=== PATIENT | male | born 1970 | race Caucasian/White ===

== ENCOUNTER 2016-06-02 13:11 | Emergency (ER) | payer MEDICAID ==
[~2016-06-02] VITALS: Ht 188 cm; Wt 77.1 kg
[2016-06-02 14:56] VITALS: BP 138/98
[2016-06-02] MEDS ORDERED: HYDROcodone-ACET 10/325MG TAB PO ONE (15:30)
[2016-06-02] MEDS ORDERED: KETOROLAC TROMETH 60MG/2ML VIAL IM ONE (15:30)
== END 2016-06-02 16:26 | disposition home or self-care (01) ==
LOC: EDBD 13:14 → ER 13:14
DX: M54.42 Lumbago with sciatica, left side (principal); G89.29 Other chronic pain
CPT/HCPCS: 96372; 99283; J1885

== ENCOUNTER 2016-06-15 21:40 | Emergency (ER) | payer MEDICAID ==
[~2016-06-15] VITALS: Ht 188 cm; Wt 77.1 kg
[2016-06-15 22:48] LABS: Urine RBC None Seen /hpf (0 - 3)
[2016-06-15 22:54] LABS: Urine Bilirubin Negative (Negative); Urine Blood Negative /uL (Negative); Urine Color Yellow (Yellow); Urine Glucose Normal (Normal); Urine Ketone Negative (Negative); Urine Nitrite Negative (Negative); Urine Squamous Epithelial Cell FEW /hpf (<5)
[2016-06-15 22:59] LABS: Basophils # (auto) 0 uL; Basophils % (auto) 0.3 % (0.0-2.0); Eosinophils # (auto) 0.1 uL; Eosinophils % (auto) 1.6 % (0.0-7.0); Hematocrit 45.2 % (41.0-53.0); Hemoglobin 14.8 g/dL (13.5-17.5); Lymphocytes # (auto) 1.9 uL; Lymphocytes % (auto) 20.7 % (10.0-50.0); Mean Corpuscular Hemoglobin 28.8 pg (28.0-32.0); Mean Corpuscular Hgb Conc. 32.8 g/dL (32.0-36.0); Mean Corpuscular Volume 87.7 fL (80.0-100.0); Mean Platelet Volume 8.3 fL (7.4-10.4); Monocytes # (auto) 0.7 uL; Monocytes % (auto) 7.3 % (0.0-12.0); Neutrophils # (auto) 6.4 uL; Neutrophils % (auto) 70.1 % (37.0-80.0); Platelet Count (auto) 291 10^3/uL (140-450); Red Cell Distribution Width 12.7 % (11.6-16.0); White Blood Cell 9.1 10^3/uL (4.4-10.8)
[2016-06-15 23:22] LABS: Albumin 3.8 g/dL (3.4-5.0); BUN/Creatinine Ratio 12.8; Calcium 9.2 mg/dL (8.5-10.1); Potassium 4.4 mmol/L (3.5-5.1)
[2016-06-15 23:25] LABS: Bilirubin, Total 0.2 mg/dL (0.2-1.0)
[2016-06-16] MEDS ORDERED: HYDROmorphone HCL 2 MG/ML VL IV ONE (01:30)
[2016-06-16] MEDS ORDERED: ONDANSETRON HCL 4 MG/2 ML VIAL IV ONE (01:30)
[2016-06-16 04:53] VITALS: BP 151/94
== END 2016-06-16 05:30 | disposition home or self-care (01) ==
LOC: ER 21:43
DX: S33.5XXA Sprain of ligaments of lumbar spine, initial encounter (principal); M54.16 Radiculopathy, lumbar region; M51.17 Intervertebral disc disorders with radiculopathy, lumbosacral region; M79.1 Myalgia; G89.29 Other chronic pain; M54.30 Sciatica, unspecified side
CPT/HCPCS: 36415; 72131; 80053; 81001; 85025; 96374; 96375; 99285; J1170; J2405

== ENCOUNTER 2016-09-16 03:16 | Emergency (ER) | payer MEDICAID ==
[~2016-09-16] VITALS: Ht 188 cm; Wt 68.0 kg
[2016-09-16 03:42] VITALS: BP 129/81
[2016-09-16 04:10] LABS: Basophils # (auto) 0 uL; Basophils % (auto) 0.3 % (0.0-2.0); CONDITION Y; Eosinophils # (auto) 0.1 uL; Eosinophils % (auto) 1.6 % (0.0-7.0); Hemoglobin 14.7 g/dL (13.5-17.5); Lymphocytes # (auto) 1.6 uL; Mean Corpuscular Hemoglobin 29.2 pg (28.0-32.0); Mean Corpuscular Hgb Conc. 33.4 g/dL (32.0-36.0); Mean Corpuscular Volume 87.4 fL (80.0-100.0); Mean Platelet Volume 8.1 fL (7.4-10.4); Monocytes # (auto) 0.4 uL; Monocytes % (auto) 4.4 % (0.0-12.0); Neutrophils # (auto) 6.4 uL; Neutrophils % (auto) 74.7 % (37.0-80.0); Platelet Count (auto) 374 10^3/uL (140-450); Red Cell Distribution Width 13.3 % (11.6-16.0); White Blood Cell 8.5 10^3/uL (4.4-10.8)
[2016-09-16 04:31] LABS: Albumin 3.7 g/dL (3.4-5.0); BUN/Creatinine Ratio 13.8; Calcium 8.9 mg/dL (8.5-10.1); Potassium 4.2 mmol/L (3.5-5.1)
[2016-09-16 04:34] LABS: Bilirubin, Total 0.4 mg/dL (0.2-1.0); Total Protein 7.9 g/dL (6.4-8.2)
== END 2016-09-16 12:26 | disposition left against medical advice (07) ==
LOC: ER 03:16
DX: M54.9 Dorsalgia, unspecified (principal); M79.605 Pain in left leg; Z53.21 Procedure and treatment not carried out due to patient leaving prior to being seen by health care provider
CPT/HCPCS: 36415; 74176; 80053; 85025

== ENCOUNTER 2016-11-13 12:54 | Emergency (ER) | payer MEDICAID ==
[~2016-11-13] VITALS: Ht 188 cm; Wt 67.6 kg
[2016-11-13 13:06] VITALS: BP 123/95
[2016-11-13 13:31] LABS: Basophils # (auto) 0 uL; Basophils % (auto) 0.6 % (0.0-2.0); Eosinophils # (auto) 0.1 uL; Eosinophils % (auto) 3.2 % (0.0-7.0); Hematocrit 43.4 % (41.0-53.0); Hemoglobin 14.5 g/dL (13.5-17.5); Lymphocytes # (auto) 1.2 uL; Lymphocytes % (auto) 27.3 % (10.0-50.0); Mean Corpuscular Hemoglobin 29.5 pg (28.0-32.0); Mean Corpuscular Hgb Conc. 33.4 g/dL (32.0-36.0); Mean Corpuscular Volume 88.3 fL (80.0-100.0); Mean Platelet Volume 8.5 fL (7.4-10.4); Monocytes # (auto) 0.4 uL; Monocytes % (auto) 9.3 % (0.0-12.0); Neutrophils # (auto) 2.6 uL; Neutrophils % (auto) 59.6 % (37.0-80.0); Nucleated Red Blood Cells % 0.1 %; Platelet Count (auto) 214 10^3/uL (140-450); White Blood Cell 4.4 10^3/uL (4.4-10.8)
== END 2016-11-13 15:51 | disposition home or self-care (01) ==
LOC: ER 12:56
DX: R07.9 Chest pain, unspecified (principal); R06.02 Shortness of breath; M79.1 Myalgia; F17.210 Nicotine dependence, cigarettes, uncomplicated
CPT/HCPCS: 36415; 71020; 84484; 85025; 93005

== ENCOUNTER 2017-03-28 13:26 | Emergency (ER) | payer MEDICAID ==
[~2017-03-28] VITALS: Ht 188 cm; Wt 74.4 kg
[2017-03-28 13:52] VITALS: BP 134/89
== END 2017-03-28 17:57 | disposition left against medical advice (07) ==
LOC: ER 13:26
DX: F41.9 Anxiety disorder, unspecified (principal); F32.9 Major depressive disorder, single episode, unspecified; F17.210 Nicotine dependence, cigarettes, uncomplicated

== ENCOUNTER 2017-06-05 11:45 | Emergency (ER) | payer MEDICAID ==
[~2017-06-05] VITALS: Ht 188 cm; Wt 66.0 kg
[2017-06-05] MEDS ORDERED: MEPERIDINE HCL (25 MG/ML) 1ML VIAL IV ONE (13:00)
[2017-06-05] MEDS ORDERED: LORazepam 2MG/ML-1ML VIAL IV ONE (13:00)
[2017-06-05 17:11] VITALS: BP 135/79
== END 2017-06-05 17:27 | disposition home or self-care (01) ==
LOC: ER 11:45 → EDBD 11:45 → ER 17:27
DX: M50.30 Other cervical disc degeneration, unspecified cervical region (principal); M79.1 Myalgia
CPT/HCPCS: 72125; 96374; 96375; 99291; J2060; J2175; J7030

== ENCOUNTER 2017-10-14 10:19 | Emergency (ER) | payer MEDICAID, OTHER ==
[~2017-10-14] VITALS: Ht 188 cm; Wt 70.8 kg
[2017-10-14 10:44] VITALS: BP 151/92
[2017-10-14] MEDS ORDERED: KETOROLAC TROMETH 60MG/2ML VIAL IM ONE (12:00)
== END 2017-10-14 12:29 | disposition home or self-care (01) ==
LOC: ER 10:19
DX: M54.12 Radiculopathy, cervical region (principal); F17.210 Nicotine dependence, cigarettes, uncomplicated
CPT/HCPCS: 72040; 93005; 96372; 99284; J1885

== ENCOUNTER 2018-01-19 13:31 | Emergency (ER) | payer MEDICAID ==
[~2018-01-19] VITALS: Ht 188 cm; Wt 70.8 kg
[2018-01-19 15:46] VITALS: BP 129/89
== END 2018-01-19 16:14 | disposition home or self-care (01) ==
LOC: ER 13:31
DX: S60.052A Contusion of left little finger without damage to nail, initial encounter (principal); J45.909 Unspecified asthma, uncomplicated; I10 Essential (primary) hypertension; F17.210 Nicotine dependence, cigarettes, uncomplicated; W19.XXXA Unspecified fall, initial encounter; Y93.89 Activity, other specified; Y92.410 Unspecified street and highway as the place of occurrence of the external cause; Y99.8 Other external cause status
CPT/HCPCS: 29130; 73140

== ENCOUNTER 2018-08-24 23:16 | Emergency (ER) | payer MEDICAID ==
[~2018-08-24] VITALS: Ht 188 cm; Wt 74.8 kg
[2018-08-24 23:52] LABS: Basophils # (auto) 0 uL; Basophils % (auto) 0.3 % (0.0-2.0); Eosinophils # (auto) 0.2 uL; Hematocrit 38.5 % (41.0-53.0); Hemoglobin 12.7 g/dL (13.5-17.5); Lymphocytes # (auto) 1.5 uL; Lymphocytes % (auto) 28.2 % (10.0-50.0); Mean Corpuscular Hemoglobin 28.8 pg (28.0-32.0); Mean Corpuscular Volume 87.3 fL (80.0-100.0); Monocytes # (auto) 0.4 uL; Monocytes % (auto) 8.3 % (0.0-12.0); Neutrophils # (auto) 3.1 uL; Neutrophils % (auto) 59.2 % (37.0-80.0); Nucleated Red Blood Cells % 0.1 %; Platelet Count (auto) 221 10^3/uL (140-450); Red Blood Cells 4.41 10^6/uL (4.5-5.90); Red Cell Distribution Width 13.2 % (11.8-14.3); White Blood Cell 5.3 10^3/uL (4.4-10.8)
[2018-08-25 00:09] LABS: Alanine Aminotransferase 20 U/L (16-61); Albumin 3.8 g/dL (3.4-5.0); Anion Gap 6 (5-15); Aspartate Aminotransferase 11 U/L (15-37); BUN/Creatinine Ratio 15.3; Blood Urea Nitrogen 18 mg/dL (7-18); Calcium 8.8 mg/dL (8.5-10.1); Carbon Dioxide 29 mmol/L (21-32); Chloride 107 mmol/L (98-107); GFR African American 85 mL/min; GFR Non-African American 70 mL/min; Glucose 92 mg/dL (74-106); Potassium 4.1 mmol/L (3.5-5.1); Sodium 142 mmol/L (136-145)
[2018-08-25 00:14] LABS: Alkaline Phosphatase 85 U/L (45-117); Bilirubin, Total 0.2 mg/dL (0.2-1.0); Total Protein 7.5 g/dL (6.4-8.2)
[2018-08-25 05:54] VITALS: BP 129/90
== END 2018-08-25 04:00 | disposition left against medical advice (07) ==
LOC: ER 23:18
DX: R07.9 Chest pain, unspecified (principal); Z53.21 Procedure and treatment not carried out due to patient leaving prior to being seen by health care provider
CPT/HCPCS: 36415; 71045; 80053; 84484; 85025; 93005

== ENCOUNTER 2018-09-26 08:07 | Emergency (ER) | payer MEDICAID ==
[~2018-09-26] VITALS: Ht 188 cm; Wt 74.4 kg
[2018-09-26 08:37] LABS: Basophils # (auto) 0.1 uL; Basophils % (auto) 2.6 % (0.0-2.0); Eosinophils # (auto) 0.1 uL; Eosinophils % (auto) 2.9 % (0.0-7.0); Hematocrit 44.4 % (41.0-53.0); Hemoglobin 14.8 g/dL (13.5-17.5); Lymphocytes # (auto) 1.5 uL; Lymphocytes % (auto) 29.3 % (10.0-50.0); Mean Corpuscular Hemoglobin 28.9 pg (28.0-32.0); Mean Corpuscular Hgb Conc. 33.3 g/dL (32.0-36.0); Mean Corpuscular Volume 86.8 fL (80.0-100.0); Monocytes # (auto) 0.5 uL; Neutrophils # (auto) 2.9 uL; Neutrophils % (auto) 56.2 % (37.0-80.0); Nucleated Red Blood Cells % 0.2 %; Platelet Count (auto) 230 10^3/uL (140-450); Red Blood Cells 5.12 10^6/uL (4.5-5.90); Red Cell Distribution Width 12.7 % (11.8-14.3); White Blood Cell 5.1 10^3/uL (4.4-10.8)
[2018-09-26] MEDS ORDERED: ONDANSETRON HCL 4 MG/2 ML VIAL IV ONE (08:45)
[2018-09-26] MEDS ORDERED: MORPHINE SULFATE 4 MG/ML SYR/VIAL IV ONE (08:45)
[2018-09-26 08:56] LABS: Albumin 3.8 g/dL (3.4-5.0); Calcium 9.6 mg/dL (8.5-10.1); Potassium 4.7 mmol/L (3.5-5.1)
[2018-09-26 08:58] LABS: BUN/Creatinine Ratio 15.6
[2018-09-26 08:59] LABS: Bilirubin, Total 0.5 mg/dL (0.2-1.0); Total Protein 7.6 g/dL (6.4-8.2)
[2018-09-26] MEDS ORDERED: SODIUM CHLORIDE 0.9% 1,000 ML IV ONE ×2 (08:59)
[2018-09-26] MEDS ORDERED: DOCUSATE SOD 100 MG CAP PO ONE (09:00)
[2018-09-26 12:38] LABS: Urine Bacteria NONE SEEN /hpf (None Seen); Urine Blood Negative /uL (Negative); Urine Mucus FEW (None Seen); Urine Specific Gravity 1.025 (1.001-1.035); Urine WBC None Seen /hpf (0 - 3)
[2018-09-26 13:00] VITALS: BP 137/86
== END 2018-09-26 13:57 | disposition home or self-care (01) ==
LOC: ER 08:07
DX: N20.0 Calculus of kidney (principal); K59.00 Constipation, unspecified; R11.2 Nausea with vomiting, unspecified; J45.909 Unspecified asthma, uncomplicated; I10 Essential (primary) hypertension; F17.210 Nicotine dependence, cigarettes, uncomplicated
CPT/HCPCS: 36415; 74176; 80053; 81001; 83690; 85025; 96361; 96374; 96375; 99284; J2270; J2405; J7030

== ENCOUNTER 2019-03-31 03:30 | Inpatient (IN) | payer MEDICAID ==
[~2019-03-31] VITALS: Ht 185.4 cm; Wt 73.1 kg
[2019-03-31 05:27] LABS: Basophils # (auto) 0.1 uL; Basophils % (auto) 0.9 % (0.0-2.0); Eosinophils # (auto) 0.1 uL; Eosinophils % (auto) 2.2 % (0.0-7.0); Hematocrit 38.5 % (41.0-53.0); Hemoglobin 12.8 g/dL (13.5-17.5); Lymphocytes # (auto) 1.6 uL; Lymphocytes % (auto) 27.5 % (10.0-50.0); Mean Corpuscular Hemoglobin 28.4 pg (28.0-32.0); Mean Corpuscular Hgb Conc. 33.3 g/dL (32.0-36.0); Mean Corpuscular Volume 85.4 fL (80.0-100.0); Monocytes # (auto) 0.4 uL; Monocytes % (auto) 7.4 % (0.0-12.0); Neutrophils # (auto) 3.6 uL; Nucleated Red Blood Cells % 0.2 %; Platelet Count (auto) 208 10^3/uL (140-450); Red Blood Cells 4.51 10^6/uL (4.5-5.90); White Blood Cell 5.9 10^3/uL (4.4-10.8)
[2019-03-31 05:39] LABS: Albumin 3.6 g/dL (3.4-5.0); Anion Gap 6 (5-15); Blood Urea Nitrogen 21 mg/dL (7-18); Carbon Dioxide 28 mmol/L (21-32); Chloride 104 mmol/L (98-107); Glucose 94 mg/dL (74-106); Potassium 3.9 mmol/L (3.5-5.1); Sodium 138 mmol/L (136-145)
[2019-03-31 05:45] LABS: Alanine Aminotransferase 15 U/L (16-61); Alkaline Phosphatase 85 U/L (45-117); Aspartate Aminotransferase 13 U/L (15-37); BUN/Creatinine Ratio 21.4; Bilirubin, Total 0.3 mg/dL (0.2-1.0); GFR African American 105 mL/min; GFR Non-African American 87 mL/min; Total Protein 7.1 g/dL (6.4-8.2)
[2019-03-31] MEDS ORDERED: ALBUTEROL SULF 2.5 MG/0.5ML(0.5%) NEB SOLN NEB ONE ×2 (07:15→12:30)
[2019-03-31] MEDS ORDERED: IPRATROPIUM BROM 0.5 MG/2.5ML INH SOL NEB ONE ×2 (07:15→12:30)
[2019-03-31] MEDS ORDERED: methylPREDNISolone SOD SUCC 125 MG/2 ML VL IV ONE (07:30)
[2019-03-31] MEDS ORDERED: IOHEXOL 350 MG/ML 100ML IJ ONE (10:27)
[2019-03-31] MEDS ORDERED: ONDANSETRON HCL 4 MG/2 ML VIAL IV ONE (12:45)
[2019-03-31] MEDS ORDERED: MORPHINE SULFATE 4 MG/ML SYR/VIAL IV ONE (12:45)
[2019-03-31] MEDS: SODIUM CHLORIDE 0.9% 1,000 ML IV SCH (13:43)
[2019-03-31] MEDS ORDERED: TEMAZEPAM 15 MG CAP PO PRN (13:45)
[2019-03-31] MEDS ORDERED: NITROGLYCERIN 0.4 MG SL TAB SL PRN (13:45)
[2019-03-31] MEDS ORDERED: ALBUTEROL SULF 2.5 MG/0.5ML(0.5%) NEB SOLN NEB PRN (13:45)
[2019-03-31] MEDS ORDERED: traMADol HCL 50 MG TAB PO PRN (13:45)
[2019-03-31] MEDS ORDERED: OSELTAMIVIR 75 MG CAP PO ONE (13:45)
[2019-03-31] MEDS ORDERED: LACTULOSE 20Gm/30ML SOLN PO PRN (13:45)
[2019-03-31] MEDS ORDERED: MORPHINE SULF INJ 2 MG/ML SYRINGE 1ML IV PRN (13:45)
[2019-03-31] MEDS ORDERED: PROMETHAZINE HCL 25 MG/ML 1ML IV PRN (13:45)
[2019-03-31] MEDS ORDERED: DEXTROSE (50%) 50ML SYRG IV PRN (13:45)
[2019-03-31] MEDS ORDERED: ACETAMINOPHEN 500 MG TAB PO PRN (13:45)
[2019-03-31] MEDS: DOXYCYCLINE 100MG/250ML 250 ML IV SCH (13:45)
--- NOTE | 2019-03-31 15:38 | NUR ---
Telemetry admit from ER VITALIY KINCAID admitted to Telemetry unit after no SBAR received from SNOW[employer]ARD[employer] INSTRUCTOR Ever. Patient oriented to Chantal Centeno RN primary RN, unit, room, bed, and unit policies regarding patient care and visiting hours. Patient now on continuous telemetry monitoring, tele box #[id number] and telemetry reading on arrival to unit is Sinus Tachycardia 110. Patient weighed by bedscale and encouraged to call if they need something. All questions and concerns addressed, patient verbalized understanding.
[2019-03-31 15:57] VITALS: BP 125/82
[2019-03-31] MEDS ORDERED: DIPH50CA31 OR (16:42)
[2019-03-31] MEDS ORDERED: LISI10TA6 PO (16:42)
[2019-03-31] MEDS ORDERED: HYDR-4833 PO (16:42)
[2019-03-31] MEDS ORDERED: CYCL-611 PO (16:42)
[2019-03-31] MEDS ORDERED: GABA300C10 PO (16:42)
[2019-03-31] MEDS ORDERED: NAP500T PO (16:42)
[2019-03-31] MEDS ORDERED: PNEUMOCOCCAL VACC POLYS 25 MCG/0.5 ML VIAL IM ONE (16:45)
[2019-03-31] MEDS ORDERED: INFLUENZA QUAD 2019-2020 0.5ml SYRG IM ONE (16:45)
[2019-03-31] MEDS: InsuLIN REG 1unit/0.01ml Soln (100units/ml) SC SCH ×2 (17:00→21:06)
[2019-03-31] MEDS: ACCU-CHEK COMFORT CURVE STRIP VI SCH ×2 (17:24→21:06)
[2019-03-31] MEDS: methylPREDNISolone SOD SUCC 40 MG/ML VL IV SCH (17:32)
[2019-03-31] MEDS: IPRATROPIUM BROM 0.5 MG/2.5ML INH SOL NEB SCH (18:16)
[2019-03-31] MEDS: ALBUTEROL SULF 2.5 MG/0.5ML(0.5%) NEB SOLN NEB SCH (18:16)
--- NOTE | 2019-03-31 18:53 | NUR ---
CLOSING SHIFT NOTE ENDORSED CARE TO SECURITY DISPATCHER JOANN ORTIZ. PATIENT HAS NO S/S OF DISTRESS/SOB OR PAIN AT THIS TIME.
--- NOTE | 2019-03-31 19:20 | NUR ---
Opening Shift Note Assumed care of patient, awake and alert. No S/S of distress/SOB or pain. Instructed on POC and to call for assist PRN, will continue to monitor for changes Q1hr and PRN.
[2019-03-31 20:00] VITALS: BP 109/59
[2019-03-31 20:55] VITALS: BP 125/82
[2019-03-31 22:00] VITALS: BP_SYST 59
[2019-03-31] MEDS: OSELTAMIVIR 75 MG CAP PO SCH (22:06)
[2019-04-01] MEDS: methylPREDNISolone SOD SUCC 40 MG/ML VL IV SCH ×3 (00:37→12:00)
[2019-04-01] MEDS: DOXYCYCLINE 100MG/250ML 250 ML IV SCH ×2 (00:50→14:00)
[2019-04-01] MEDS: SODIUM CHLORIDE 0.9% 1,000 ML IV SCH (03:00)
--- NOTE | 2019-04-01 03:30 | NUR ---
PT CARE RESUMED/REPORT RECEIVED FROM DIANA DAVID PT CURRENTLY SLEEPING, ON HIS LEFT SIDE, BREATHING EVEN AND UNLABORED, ON RA, NO C/O CP, SOB, DOES C/O OF DISCOMFORT TO BLE, STATES HE TAKES GABAPENTIN, INFORMED WE I WILL ENDORSE TO DAYSHIFT FOR MD TO RESUME, WILL MEDICATE WITH CURRENT MEDICATION ORDERED FOR PAIN, LUNGS CLEAR, NO CURRENT C/O COUGH, INSTRUCTED WE ARE TO COLLECT A RESPIRATORY CULTURE, COLLECTION CUP PROVIDED, CALL LIGHT WITHIN REACH, CONT CARE
--- NOTE | 2019-04-01 05:00 | NUR ---
PT ACTIVITY PT AMBULATING [facility], ON RA, NO C/O SOB OR CP, NO DISTRESS NOTED, CONT CARE
[2019-04-01 05:30] VITALS: BP 146/74
[2019-04-01] MEDS: ACCU-CHEK COMFORT CURVE STRIP VI SCH ×2 (05:58→11:30)
[2019-04-01] MEDS: ALBUTEROL SULF 2.5 MG/0.5ML(0.5%) NEB SOLN NEB SCH ×3 (06:19→11:27)
[2019-04-01] MEDS: IPRATROPIUM BROM 0.5 MG/2.5ML INH SOL NEB SCH ×3 (06:19→11:28)
[2019-04-01] MEDS: InsuLIN REG 1unit/0.01ml Soln (100units/ml) SC SCH ×2 (06:28→11:30)
--- NOTE | 2019-04-01 07:30 | NUR ---
OPENING SHIFT NOTE: Received report from Lucinda DAVID. Assumed care of patient. Patient resting quietly in room. Denies pain. Bed in lowest position, rails x2 up and call light within reach. Updated on plan of care. Will continue to monitor.
[2019-04-01 09:00] VITALS: BP 118/74
[2019-04-01] MEDS: OSELTAMIVIR 75 MG CAP PO SCH (10:00)
[2019-04-01] MEDS ORDERED: ENOXAPARIN SOD 40 MG/0.4 ML SYRINGE SC SCH (10:00)
--- NOTE | 2019-04-01 10:12 | NUR ---
Held Tamiflu due to negative Influenza A and B.
--- NOTE | 2019-04-01 12:30 | NUR ---
Unable to medicate patient with 1200 Solumedrol. Patient not in room.
--- NOTE | 2019-04-01 12:42 | NUR ---
Nutrition Assessment Notes Please refer to link for full assessment notes Est energy needs: 8550-4938 kcals (25-30 kcal/kgBW) Est protein needs: 58-73 gms/day (0.8-1.0 gm/kgBW) Will continue to monitor and reassess prn Addendum: 04/01/19 at [address] Amended: Links added.
--- NOTE | 2019-04-01 12:50 | NUR ---
MD: Dr Ambrosio trying to round on patient. Patient still not in room. Paged patient over head to return to room. Patient's belongings still in room.
--- NOTE | 2019-04-01 13:04 | NUR ---
Patient still not in room, Dr Ambrosio patiently waiting to round on patient. Paged security to locate patient.
--- NOTE | 2019-04-01 13:30 | NUR ---
MD: Patient returned to room. Dr Ambrosio to see.
[2019-04-01 14:00] VITALS: BP 123/78
--- NOTE | 2019-04-01 15:45 | NUR ---
DISCHARGE: Discharge instructions given as ordered. Encourage to follow up with PMD as instructed. All questions and concerns addressed. Patient verbalized understanding. Medication reconciliation form completed and copy given to patient. IV removed with catheter intact, pressure dressing applied. Telemetry unit returned to ICU. Patient taken to vehicle via wheelchair with all personal belongings, accompanied by staff and family member. No distress noted at time of departure.
== END 2019-04-01 15:30 | disposition home or self-care (01) | DRG 140 ==
LOC: ER 03:30 → TELE-EAST 03:31
PROVIDERS: ADMIT Internal Medicine; ATTEND Internal Medicine
DX: J44.0 Chronic obstructive pulmonary disease with (acute) lower respiratory infection (principal); J18.9 Pneumonia, unspecified organism; J44.1 Chronic obstructive pulmonary disease with (acute) exacerbation; E11.9 Type 2 diabetes mellitus without complications; F32.9 Major depressive disorder, single episode, unspecified; I73.00 Raynaud's syndrome without gangrene; F17.210 Nicotine dependence, cigarettes, uncomplicated; I10 Essential (primary) hypertension; F41.9 Anxiety disorder, unspecified; Z87.01 Personal history of pneumonia (recurrent); Z79.51 Long term (current) use of inhaled steroids; Z79.899 Other long term (current) drug therapy; Z82.49 Family history of ischemic heart disease and other diseases of the circulatory system; Z80.3 Family history of malignant neoplasm of breast; J45.901 Unspecified asthma with (acute) exacerbation
CPT/HCPCS: 36415; 71046; 71275; 80053; 82962; 83036; 84484; 85025; 85379; 86225; 86235; 87804; 94640; 96374; 96375; G0378; J1815; J2405; J3490

== ENCOUNTER 2020-01-02 12:25 | Emergency (ER) | payer MEDICAID ==
[~2020-01-02] VITALS: Ht 188 cm; Wt 77.1 kg
[~2020-01-02 12:25] MED LIST: CYCL-611 PO; DIPH50CA31 OR; GABA300C10 PO; HYDR-4833 PO; LISI-648 PO; NAP500T PO
[2020-01-02 14:05] VITALS: BP 100/61
[2020-01-02] MEDS ORDERED: ACETAMINOPHEN/CODEINE#3 (300/30mg) TAB PO ONE (14:45)
== END 2020-01-02 15:02 | disposition home or self-care (01) ==
LOC: ER 12:25
DX: G89.29 Other chronic pain (principal); M54.9 Dorsalgia, unspecified; Z76.0 Encounter for issue of repeat prescription; M54.2 Cervicalgia; F41.9 Anxiety disorder, unspecified; J45.909 Unspecified asthma, uncomplicated; E11.9 Type 2 diabetes mellitus without complications; I10 Essential (primary) hypertension; F17.210 Nicotine dependence, cigarettes, uncomplicated; Z79.899 Other long term (current) drug therapy

== ENCOUNTER 2020-04-29 20:27 | Emergency (ER) | payer MEDICAID ==
[~2020-04-29] VITALS: Ht 188 cm; Wt 77.1 kg
[2020-04-29] MEDS ORDERED: PANTOPRAZOLE 40 MG/10 ML VIAL INJ IV STA (20:47)
[2020-04-29] MEDS ORDERED: MORPHINE SULFATE 4 MG/ML SYR/VIAL IV ONE (21:00)
[2020-04-29] MEDS ORDERED: SODIUM CHLORIDE 0.9% 500 ML IVB ONE (21:00)
[2020-04-29] MEDS ORDERED: ONDANSETRON HCL 4 MG/2 ML VIAL IV ONE (21:00)
[2020-04-29 22:41] LABS: Basophils # (auto) 0.1 10 ^3/uL (0-0.2); Basophils % (auto) 0.9 % (0.0-2.0); Eosinophils # (auto) 0.1 10 ^3/uL (0-0.8); Eosinophils % (auto) 2.3 % (0.0-7.0); Hematocrit 42.8 % (41.0-53.0); Hemoglobin 14.6 g/dL (13.5-17.5); Lymphocytes # (auto) 1.5 10 ^3/uL (0.4-5.4); Lymphocytes % (auto) 23.6 % (10.0-50.0); Mean Corpuscular Hgb Conc. 34.2 g/dL (32.0-36.0); Mean Corpuscular Volume 84.9 fL (80.0-100.0); Monocytes # (auto) 0.4 10 ^3/uL (0-1.3); Monocytes % (auto) 6.3 % (0.0-12.0); Neutrophils # (auto) 4.2 10 ^3/uL (1.6-8.6); Neutrophils % (auto) 66.9 % (37.0-80.0); Platelet Count (auto) 228 10^3/uL (140-450); Red Blood Cells 5.04 10^6/uL (4.5-5.90); Red Cell Distribution Width 13.5 % (11.8-14.3); White Blood Cell 6.3 10^3/uL (4.4-10.8)
[2020-04-29 22:57] LABS: INR 0.98 (0.9-1.15); Partial Thromboplastin Time 26.8 sec (23.0-31.2)
[2020-04-29 22:59] LABS: Anion Gap 3 (5-15); Blood Urea Nitrogen 21 mg/dL (7-18); Calcium 9.2 mg/dL (8.5-10.1); Carbon Dioxide 32 mmol/L (21-32); Chloride 101 mmol/L (98-107); Glucose 96 mg/dL (74-106); Lipase 143 U/L (73-393); Potassium 3.7 mmol/L (3.5-5.1); Sodium 136 mmol/L (136-145)
[2020-04-29 23:06] LABS: Alanine Aminotransferase 22 U/L (16-61); Alkaline Phosphatase 88 U/L (45-117); Aspartate Aminotransferase 14 U/L (15-37); BUN/Creatinine Ratio 18.1; Bilirubin, Total 0.6 mg/dL (0.2-1.0); GFR African American 86 mL/min; GFR Non-African American 71 mL/min
[2020-04-30 02:22] VITALS: BP 125/82
== END 2020-04-30 02:47 | disposition still patient (30) ==
LOC: ER 20:32
DX: R10.11 Right upper quadrant pain (principal); E11.9 Type 2 diabetes mellitus without complications; I10 Essential (primary) hypertension; F17.210 Nicotine dependence, cigarettes, uncomplicated; Z79.899 Other long term (current) drug therapy
CPT/HCPCS: 36415; 76705; 80053; 83690; 84484; 85025; 85610; 85730; 93005; 96361; 96374; 96375; 99285; C9113; J2270; J2405

== ENCOUNTER 2023-07-22 09:43 | Emergency (ER) | payer MEDICAID ==
[~2023-07-22] VITALS: Ht 188 cm; Wt 81.2 kg
[2023-07-22 09:43] VITALS: BP 115/83; PULSE 93; RESP 18; O2SAT 99
[~2023-07-22 09:43] MED LIST changes: +GABA-1250 PO; -GABA300C10 PO; -LISI-648 PO; +LISI10TA34 PO
== END 2023-07-22 10:48 | disposition left against medical advice (07) ==
LOC: ER 09:43
DX: R10.9 Unspecified abdominal pain (principal); Z53.21 Procedure and treatment not carried out due to patient leaving prior to being seen by health care provider